=== PATIENT | male | born 1970 | race Caucasian/White ===

== ENCOUNTER 2018-01-06 02:50 | Inpatient (IN) | payer MEDICAID ==
[~2018-01-06] VITALS: Ht 167.6 cm; Wt 131.1 kg
[~2018-01-06 02:50] MED LIST: ALDACTONE25 MG PO; CARVEDILOL12.5 M1 PO; ISOSORBIDE30 M1 PO; LIPITOR80 MG PO; LISINOPRIL40 MG PO; VITAMIN D2 PO; ZOLOFT50 MG PO
[2018-01-06 03:01] VITALS: Ht 167.6 cm; Wt 131.1 kg
[2018-01-06 03:49] LABS: BASOPHIL % 0.3 % (0-2); PLATELET COUNT 260 x10^3mcL (130-400); RED CELL DISTRIBUTION WIDTH 12.9 % (11.5-14.5)
[2018-01-06 04:09] LABS: CALCIUM 8.4 mg/dL (8.5-10.1); CARBON DIOXIDE 31.5 mmol/L (21-32); CHLORIDE SERUM 101 mmol/L (98-107); CREATININE SERUM 0.8 mg/dL (0.7-1.3); GFR1 > 60 mL/min; GLUCOSE SERUM 305 mg/dL (74-106); POTASSIUM SERUM 4.4 mmol/L (3.5-5.1); SODIUM SERUM 134 mmol/L (136-145)
[2018-01-06 04:13] LABS: ALBUMIN 3.1 g/dL (3.4-5.0); ALKALINE PHOSPHATASE 113 U/L (46-116); ALT/SGPT 52 U/L (16-63); AST/SGOT 28 U/L (15-37); BILIRUBIN TOTAL 0.26 mg/dL (0.20-1.00); LIPASE 400 IU/L (73-393); MAGNESIUM 1.8 mg/dL (1.8-2.4); TOTAL PROTEIN, SERUM 7.4 g/dL (6.4-8.2)
[2018-01-06] MEDS ORDERED: CARVEDILOL25 M1 PO (04:38)
[2018-01-06] MEDS ORDERED: LANTUS SOLOS100 U/M1 (04:38)
[2018-01-06] MEDS ORDERED: DICLOFENAC POTA50 MG PO (04:39)
[2018-01-06] MEDS ORDERED: GLIPIZIDE10 M2 PO (04:40)
[2018-01-06] MEDS ORDERED: HYDRALAZINE HCL25 MG PO (04:40)
[2018-01-06] MEDS ORDERED: NOR10 PO (04:41)
[2018-01-06] MEDS ORDERED: COZAAR100 MG PO (04:41)
[2018-01-06] MEDS ORDERED: METFORMIN HCL1000 MG PO (05:22)
[2018-01-06 05:23] VITALS: BP 132/92
[2018-01-06] MEDS ORDERED: ASPIR-TRIN325 MG PO (05:23)
[2018-01-06] MEDS ORDERED: LIPITOR80 MG PO (05:23)
[2018-01-06 07:31] LABS: T3 TOTAL 1.39 ng/mL
[2018-01-06 07:59] LABS: CHOLESTEROL/HDL RATIO 4.5; PHOSPHOROUS 4.2 mg/dL (2.5-4.9)
[2018-01-06 08:07] LABS: FREE THYROXINE INDEX 2.7 ug/dL (1.4-4.5); T4(THYROXINE) 8.3 ug/dL (4.7-13.3)
[2018-01-06 08:34] LABS: UA SPECIFIC GRAVITY >=1.030 (1.005-1.035); microscopic required? YES; urine erythrocyte NEGATIVE (NEGATIVE)
[2018-01-06 08:53] LABS: AMPHETAMINE QUAL UR NONE DETECTED (See below)
[2018-01-06 09:05] VITALS: BP 136/82
[2018-01-06 13:43] VITALS: BP 103/68
[2018-01-06 17:00] VITALS: BP 145/99
[2018-01-06 22:13] VITALS: BP 122/71
[2018-01-07 06:02] LABS: BASOPHIL % 0.3 % (0-2); PLATELET COUNT 251 x10^3mcL (130-400); RED CELL DISTRIBUTION WIDTH 13.1 % (11.5-14.5)
[2018-01-07 06:07] VITALS: BP 120/79
[2018-01-07 06:14] LABS: CALCIUM 8.6 mg/dL (8.5-10.1); CARBON DIOXIDE 31.3 mmol/L (21-32); CHLORIDE SERUM 102 mmol/L (98-107); CREATININE SERUM 0.7 mg/dL (0.7-1.3); GFR1 > 60 mL/min; GLUCOSE SERUM 157 mg/dL (74-106); SODIUM SERUM 139 mmol/L (136-145)
[2018-01-07 09:47] VITALS: BP 149/92
[2018-01-07 12:52] VITALS: BP 102/65
== END 2018-01-07 13:00 | disposition home or self-care (01) | DRG 243 ==
LOC: ED 02:50 → DU 04:23
PROVIDERS: Emergency Medicine; Family Medicine
DX: K21.9 Gastro-esophageal reflux disease without esophagitis (principal); I50.43 Acute on chronic combined systolic (congestive) and diastolic (congestive) heart failure; E44.0 Moderate protein-calorie malnutrition; E11.65 Type 2 diabetes mellitus with hyperglycemia; Z68.43 Body mass index [BMI] 50.0-59.9, adult; I48.92 Unspecified atrial flutter; I11.0 Hypertensive heart disease with heart failure; F32.9 Major depressive disorder, single episode, unspecified; J45.909 Unspecified asthma, uncomplicated; E78.00 Pure hypercholesterolemia, unspecified; F12.90 Cannabis use, unspecified, uncomplicated; I25.10 Atherosclerotic heart disease of native coronary artery without angina pectoris; E66.01 Morbid (severe) obesity due to excess calories
CPT/HCPCS: 82962; 83880; 84439; J0360; J1815; J7030; Q0092

== ENCOUNTER 2018-08-18 06:38 | Inpatient (IN) | payer MEDICAID ==
[~2018-08-18] VITALS: Ht 167.6 cm; Wt 156.0 kg
[~2018-08-18 06:38] MED LIST changes: +ASPIR-TRIN325 MG PO; +CARVEDILOL25 M1 PO; +COZAAR100 MG PO; +DICLOFENAC POTA50 MG PO; +GLIPIZIDE10 M2 PO; +HYDRALAZINE HCL25 MG PO; +LANTUS SOLOS100 U/M1; +METFORMIN HCL1000 MG PO; +NOR10 PO
[2018-08-18 08:08] LABS: BASOPHIL % 0.3 % (0-2); PLATELET COUNT 245 x10^3mcL (130-400); RED CELL DISTRIBUTION WIDTH 13.4 % (11.5-14.5)
[2018-08-18 08:11] LABS: CALCIUM 7.7 mg/dL (8.5-10.1); CARBON DIOXIDE 33.2 mmol/L (21-32); CHLORIDE SERUM 99 mmol/L (98-107); CREATININE SERUM 0.6 mg/dL (0.7-1.3); GFR1 > 60 mL/min; GLUCOSE SERUM 293 mg/dL (74-106); POTASSIUM SERUM 4.8 mmol/L (3.5-5.1); SODIUM SERUM 135 mmol/L (136-145)
[2018-08-18 08:22] LABS: ALKALINE PHOSPHATASE 100 U/L (46-116); ALT/SGPT 40 U/L (16-63); AST/SGOT 32 U/L (15-37); BILIRUBIN TOTAL 0.38 mg/dL (0.20-1.00); LIPASE 113 IU/L (73-393); MAGNESIUM 1.8 mg/dL (1.8-2.4); T4(THYROXINE) 5.8 ug/dL (4.7-13.3); TOTAL PROTEIN, SERUM 7.3 g/dL (6.4-8.2)
[2018-08-18 08:25] LABS: ALBUMIN 2.8 g/dL (3.4-5.0); AMYLASE 20 U/L (25-115); CHOLESTEROL 120 mg/dL (<200); HDL CHOLESTEROL 33 mg/dL (40-60)
[2018-08-18 09:13] LABS: CHOLESTEROL/HDL RATIO 3.7
[2018-08-18 11:07] LABS: microscopic required? YES; urine erythrocyte NEGATIVE (NEGATIVE)
[2018-08-18 11:20] LABS: AMPHETAMINE QUAL UR NONE DETECTED (See below)
[2018-08-18 16:25] VITALS: BP 145/94
[2018-08-18 16:30] VITALS: Ht 167.6 cm; Wt 156.0 kg
[2018-08-18 17:15] VITALS: BP 139/83
[2018-08-18 17:40] VITALS: BP 145/94
[2018-08-18 21:10] VITALS: BP 145/88
[2018-08-19] VITALS (8 sets, daily range): BP systolic 108–157; BP diastolic 68–91
[2018-08-19 06:21] LABS: CALCIUM 8.3 mg/dL (8.5-10.1); CARBON DIOXIDE 37.9 mmol/L (21-32); CHLORIDE SERUM 99 mmol/L (98-107); CREATININE SERUM 0.9 mg/dL (0.7-1.3); GFR1 > 60 mL/min; GLUCOSE SERUM 212 mg/dL (74-106); MAGNESIUM 2.2 mg/dL (1.8-2.4); PHOSPHOROUS 3.8 mg/dL (2.5-4.9); POTASSIUM SERUM 4.6 mmol/L (3.5-5.1); SODIUM SERUM 141 mmol/L (136-145)
[2018-08-19 06:42] LABS: BASOPHIL % 0.3 % (0-2); PLATELET COUNT 229 x10^3mcL (130-400); RED CELL DISTRIBUTION WIDTH 13.4 % (11.5-14.5)
[2018-08-20 05:47] VITALS: BP 129/89
[2018-08-20 06:45] LABS: BASOPHIL % 0.3 % (0-2); PLATELET COUNT 223 x10^3mcL (130-400); RED CELL DISTRIBUTION WIDTH 12.4 % (11.5-14.5)
[2018-08-20 07:06] LABS: CALCIUM 8.6 mg/dL (8.5-10.1); CARBON DIOXIDE 37.8 mmol/L (21-32); CHLORIDE SERUM 96 mmol/L (98-107); CREATININE SERUM 0.9 mg/dL (0.7-1.3); GFR1 > 60 mL/min; GLUCOSE SERUM 201 mg/dL (74-106); PHOSPHOROUS 3.8 mg/dL (2.5-4.9); POTASSIUM SERUM 3.8 mmol/L (3.5-5.1); SODIUM SERUM 135 mmol/L (136-145)
[2018-08-20 09:50] VITALS: BP 158/87
[2018-08-20 12:36] VITALS: BP 151/95
[2018-08-20 18:19] VITALS: BP 147/97
[2018-08-20 21:33] VITALS: BP 141/95
[2018-08-21 05:21] VITALS: BP 103/70
[2018-08-21 08:45] VITALS: BP 135/79
[2018-08-21 13:00] VITALS: BP 155/99
[2018-08-21 18:01] VITALS: BP 164/92
[2018-08-21 21:53] VITALS: BP 156/94
[2018-08-22 04:52] VITALS: BP 138/93
[2018-08-22 07:32] LABS: CALCIUM 8.6 mg/dL (8.5-10.1); CHLORIDE SERUM 98 mmol/L (98-107); CREATININE SERUM 0.8 mg/dL (0.7-1.3); GFR1 > 60 mL/min; GLUCOSE SERUM 169 mg/dL (74-106); POTASSIUM SERUM 3.8 mmol/L (3.5-5.1); SODIUM SERUM 139 mmol/L (136-145)
[2018-08-22 08:43] LABS: BASOPHIL % 0.3 % (0-2); PLATELET COUNT 212 x10^3mcL (130-400); RED CELL DISTRIBUTION WIDTH 12.7 % (11.5-14.5)
[2018-08-22 09:28] VITALS: BP 140/91
[2018-08-22 14:08] VITALS: BP 130/91
[2018-08-22 17:19] VITALS: BP 167/89
[2018-08-22 21:14] VITALS: BP 148/95
[2018-08-23 05:52] VITALS: BP 128/57
[2018-08-23 06:51] LABS: CALCIUM 9.3 mg/dL (8.5-10.1); CARBON DIOXIDE 36.8 mmol/L (21-32); CHLORIDE SERUM 98 mmol/L (98-107); CREATININE SERUM 0.9 mg/dL (0.7-1.3); GFR1 > 60 mL/min; GLUCOSE SERUM 183 mg/dL (74-106); POTASSIUM SERUM 3.9 mmol/L (3.5-5.1); SODIUM SERUM 140 mmol/L (136-145)
[2018-08-23 07:10] LABS: BASOPHIL % 0.1 % (0-2); PLATELET COUNT 215 x10^3mcL (130-400); RED CELL DISTRIBUTION WIDTH 13.5 % (11.5-14.5)
[2018-08-23 09:07] VITALS: BP 145/76
[2018-08-23 12:32] VITALS: BP 126/84
[2018-08-23 15:43] VITALS: BP 126/84
[2018-08-23 17:58] VITALS: BP 131/94
[2018-08-23 20:29] VITALS: BP 139/91
[2018-08-24 05:41] VITALS: BP 142/67
[2018-08-24 06:36] LABS: CALCIUM 9.3 mg/dL (8.5-10.1); CARBON DIOXIDE 37.4 mmol/L (21-32); CHLORIDE SERUM 93 mmol/L (98-107); GFR1 > 60 mL/min; GLUCOSE SERUM 189 mg/dL (74-106); POTASSIUM SERUM 3.3 mmol/L (3.5-5.1); SODIUM SERUM 135 mmol/L (136-145)
[2018-08-24 06:44] LABS: BASOPHIL % 0.2 % (0-2); PLATELET COUNT 213 x10^3mcL (130-400); RED CELL DISTRIBUTION WIDTH 13.3 % (11.5-14.5)
[2018-08-24 09:56] VITALS: BP 120/56
[2018-08-24] MEDS ORDERED: ELIQUIS2.5 MG PO (11:26)
[2018-08-24] MEDS ORDERED: APR25 PO (11:26)
[2018-08-24] MEDS ORDERED: KLOR-CON M2020 MEQ PO (11:26)
[2018-08-24] MEDS ORDERED: COZ25 PO (11:26)
[2018-08-24] MEDS ORDERED: CARVEDILOL12.5 M1 PO (11:26)
[2018-08-24] MEDS ORDERED: L40 PO (11:27)
[2018-08-24] MEDS ORDERED: Z5 PO (11:27)
[2018-08-24 13:03] VITALS: BP 120/56
[2018-08-24 13:23] VITALS: BP 119/80
== END 2018-08-24 16:15 | disposition home or self-care (01) | DRG 143 ==
LOC: ED 06:38 → DU 11:28
PROVIDERS: Emergency Medicine; Family Medicine; ADMIT Internal Medicine
DX: E66.2 Morbid (severe) obesity with alveolar hypoventilation (principal); J96.01 Acute respiratory failure with hypoxia; E43 Unspecified severe protein-calorie malnutrition; J96.02 Acute respiratory failure with hypercapnia; G93.41 Metabolic encephalopathy; I11.0 Hypertensive heart disease with heart failure; I50.22 Chronic systolic (congestive) heart failure; I48.91 Unspecified atrial fibrillation; E11.65 Type 2 diabetes mellitus with hyperglycemia; F32.9 Major depressive disorder, single episode, unspecified; I25.10 Atherosclerotic heart disease of native coronary artery without angina pectoris; E78.00 Pure hypercholesterolemia, unspecified; Z79.4 Long term (current) use of insulin; Z68.43 Body mass index [BMI] 50.0-59.9, adult; Z79.84 Long term (current) use of oral hypoglycemic drugs
CPT/HCPCS: 82962; 83880; 85378; G0480; J1644; J1815; J1940; J7030; J7620; Q0092

== ENCOUNTER 2018-09-26 02:07 | Inpatient (IN) | payer MEDICAID ==
[~2018-09-26] VITALS: Ht 167.6 cm; Wt 150.2 kg
[~2018-09-26 02:07] MED LIST changes: +APR25 PO; +COZ25 PO; +ELIQUIS2.5 MG PO; +KLOR-CON M2020 MEQ PO; +L40 PO; +Z5 PO
[2018-09-26 02:13] VITALS: Ht 167.6 cm; Wt 150.2 kg
[2018-09-26 03:11] LABS: BASOPHIL % 0.4 % (0-2); PLATELET COUNT 237 x10^3mcL (130-400); RED CELL DISTRIBUTION WIDTH 12.4 % (11.5-14.5)
[2018-09-26 03:14] LABS: CALCIUM 9.1 mg/dL (8.5-10.1); CARBON DIOXIDE 33.9 mmol/L (21-32); CHLORIDE SERUM 96 mmol/L (98-107); GFR1 > 60 mL/min; GLUCOSE SERUM 194 mg/dL (74-106); POTASSIUM SERUM 3.8 mmol/L (3.5-5.1); SODIUM SERUM 137 mmol/L (136-145)
[2018-09-26 03:18] LABS: ALBUMIN 3.4 g/dL (3.4-5.0); ALKALINE PHOSPHATASE 101 U/L (46-116); ALT/SGPT 47 U/L (16-63); AST/SGOT 25 U/L (15-37); BILIRUBIN TOTAL 0.32 mg/dL (0.20-1.00); LIPASE 206 IU/L (73-393); TOTAL PROTEIN, SERUM 8.2 g/dL (6.4-8.2)
[2018-09-26 04:32] LABS: MAGNESIUM 1.6 mg/dL (1.8-2.4); PHOSPHOROUS 3.8 mg/dL (2.5-4.9)
[2018-09-26 10:04] VITALS: BP 116/62
[2018-09-26 12:36] VITALS: BP 149/101
[2018-09-26 16:36] VITALS: BP 149/101
[2018-09-26 17:44] VITALS: BP 148/110
[2018-09-26 21:27] VITALS: BP 103/70
[2018-09-27 05:58] VITALS: BP 91/60
[2018-09-27 07:01] LABS: CALCIUM 9.4 mg/dL (8.5-10.1); CARBON DIOXIDE 34.5 mmol/L (21-32); CHLORIDE SERUM 96 mmol/L (98-107); CREATININE SERUM 0.8 mg/dL (0.7-1.3); GFR1 > 60 mL/min; GLUCOSE SERUM 207 mg/dL (74-106); MAGNESIUM 1.6 mg/dL (1.8-2.4); PHOSPHOROUS 4.2 mg/dL (2.5-4.9); SODIUM SERUM 136 mmol/L (136-145)
[2018-09-27 07:14] LABS: BASOPHIL % 0.3 % (0-2); PLATELET COUNT 230 x10^3mcL (130-400); RED CELL DISTRIBUTION WIDTH 12.4 % (11.5-14.5)
[2018-09-27 08:04] VITALS: BP 117/73
[2018-09-27 11:51] VITALS: BP 127/86
[2018-09-27 13:18] VITALS: BP 127/86
[2018-09-27 14:08] VITALS: BP 127/85
== END 2018-09-27 15:45 | disposition home or self-care (01) | DRG 133 ==
LOC: ED 02:07 → DU 04:12
PROVIDERS: Emergency Medicine; Internal Medicine; ADMIT General Practice
DX: J96.20 Acute and chronic respiratory failure, unspecified whether with hypoxia or hypercapnia (principal); I50.43 Acute on chronic combined systolic (congestive) and diastolic (congestive) heart failure; E11.65 Type 2 diabetes mellitus with hyperglycemia; E66.2 Morbid (severe) obesity with alveolar hypoventilation; K21.9 Gastro-esophageal reflux disease without esophagitis; E83.42 Hypomagnesemia; I25.10 Atherosclerotic heart disease of native coronary artery without angina pectoris; D72.829 Elevated white blood cell count, unspecified; J45.909 Unspecified asthma, uncomplicated; I11.0 Hypertensive heart disease with heart failure; Z68.43 Body mass index [BMI] 50.0-59.9, adult; Z79.4 Long term (current) use of insulin; Z79.84 Long term (current) use of oral hypoglycemic drugs; Z95.5 Presence of coronary angioplasty implant and graft
CPT/HCPCS: 82962; 83880; 94150; J3480; J7030; J7620; Q0092

== ENCOUNTER 2020-01-20 13:29 | Emergency (ER) | payer MEDICAID ==
[~2020-01-20] VITALS: Ht 162.6 cm; Wt 166.0 kg
[2020-01-20 13:40] VITALS: Ht 162.6 cm; Wt 166.0 kg
[2020-01-20 16:05] LABS: CALCIUM 8.7 mg/dL (8.5-10.1); CARBON DIOXIDE 28.1 mmol/L (21-32); CHLORIDE SERUM 101 mmol/L (98-107); CREATININE SERUM 0.9 mg/dL (0.7-1.3); GFR1 > 60 mL/min; GLUCOSE SERUM 244 mg/dL (74-106); POTASSIUM SERUM 4.6 mmol/L (3.5-5.1); SODIUM SERUM 138 mmol/L (136-145)
[2020-01-20 16:44] VITALS: BP 138/90
== END 2020-01-20 16:44 | disposition home or self-care (01) ==
LOC: ED 13:29
PROVIDERS: Emergency Medicine
DX: E11.65 Type 2 diabetes mellitus with hyperglycemia (principal); E66.01 Morbid (severe) obesity due to excess calories; J45.909 Unspecified asthma, uncomplicated; I10 Essential (primary) hypertension; E78.00 Pure hypercholesterolemia, unspecified
CPT/HCPCS: 82962